=== PATIENT | male | born 1995 | race Caucasian/White ===

== ENCOUNTER 2022-04-21 08:55 | Emergency (ER) | payer OTHER ==
[~2022-04-21] VITALS: Ht 170.2 cm; Wt 86.2 kg
[~2022-04-21 08:55] MED LIST: PREVACID15 MG; ZANTAC25 MG/1 ML
== END 2022-04-21 14:59 | disposition home or self-care (01) ==
LOC: ER 08:55
DX: B34.8 Other viral infections of unspecified site (principal)